=== PATIENT | male | born 1940 | race Caucasian/White ===

== ENCOUNTER → 2017-06-07 | Day surgery (SDC) | payer MEDICARE, OTHER ==
[~2017-06-07] VITALS: Ht 182.9 cm; Wt 113.4 kg
[~2017-06-07] MED LIST: 0.9% Sodium Chloride 1,000 ML IV SCH; ACET325T51 PO; ALLO300T2 PO; AMLO10TA3 PO; ATEN25TA PO; ATOR20TA PO; BUPR300T52 PO; CHOL10008 PO; ENAL20TA PO; FERR-83 PO; GABA-502 PO; GLIP2.5T2 PO; MAGN27TA2 PO; OMEG-122 PO; OMEP20CA11 PO; OXYC1TAB24 PO; POLY17PO6 PO; Sodium Chloride LOK Flush 10 mL Syringe IV PRN; TAMS0.4C98 PO; [UNRECOGNIZED DRUG - CODE] MC
[2017-06-07] MEDS: fentaNYL-PF 50 mCg/mL 2 mL Inj IVPUSH PRN ×2 (14:00→14:15)
[2017-06-07 14:06] VITALS: BP 170/78; PULSE 63; RESP 16; O2SAT 97
[2017-06-07 15:30] VITALS: BP 160/77; PULSE 61; RESP 16; O2SAT 94
[2017-06-07 15:40] VITALS: BP 107/57; PULSE 55; O2SAT 94
[2017-06-07 15:47] VITALS: BP 156/73; PULSE 61; RESP 14; O2SAT 97
--- NOTE | 2017-06-07 23:06 | ENDO ---
[address] [address] ENDOSCOPY PROCEDURE PATIENT: CARLOS ERAZO : 1940 MR#: [id number] ADMIT: 06/07/2017 JOB ID: [id number] DATE OF PROCEDURE: PROCEDURE: Colonoscopy. INDICATION: Patient with personal history of colon polyps. ANESTHESIA: Patient's ASA classification is II. Mallampati score is 2. MEDICATIONS: 1. Versed 4 mg. 2. Fentanyl 100 mcg. INSTRUMENT USED: PCF-H180AL. PREPARATION QUALITY: Fair. PROCEDURE DETAILS: After informed consent was obtained, the patient was brought to the GI suite, where he was placed on oxygen via nasal cannula and monitored with continuous pulse oximeter, telemetry, and blood pressure monitoring. A time-out was performed. Then, he was placed in the left lateral decubitus position and medications were administered for sedation. Digital rectal exam was performed which was unremarkable. The colonoscope was then inserted into the rectum and advanced under direct visualization to the cecum, which identified by the presence of the ileocecal valve and appendiceal orifice. Once the cecum was reached, the colonoscope was withdrawn back into the rectum and mucosa and lumen were examined. In the rectum, retroflexion was performed. Following retroflexion, remaining air in the rectum was suctioned and the procedure was completed. FINDINGS: 1. In the ascending colon, there were four polyps that ranged in size from diminutive to approximately 8 mm that were removed with a combination of cold biopsy forceps, cold snare and hot snare. 2. In the transverse colon, there were three polyps that ranged in size from 5 mm to 7 mm, all removed with a hot snare. 3. Retroflexed views in the rectum revealed internal hemorrhoids. IMPRESSION: 1. Four ascending colon polyps. 2. Three transverse colon polyps. 3. Internal hemorrhoids. RECOMMENDATIONS: 1. Avoid NSAIDs and anticoagulants for 72 hours. 2. Fiber rich diet. 3. Repeat colonoscopy in three years. COMPLICATIONS: None. ESTIMATED BLOOD LOSS: Less than 5 mL.
--- NOTE | 2017-06-15 11:23 | PATH ---
SURGICAL PATHOLOGY Attending Physician:Jerman Salazar CASE STATUS: Signed Out PATIENT NAME: CARLOS ERAZO JR PID: [id number] : 1940 DATE COLLECTED:06/07/2017 00:00 SPECIMEN: 1: Colon, Polyp 2: Colon, Polyp CLINICAL HISTORY: POLYPS 1). ASCENDING COLON POLYPS 2). TRANSVERSE COLON POLYP FINAL DIAGNOSIS: 1. Ascending Polyps, Polypectomies: Tubular adenoma (two of four pieces). Serrated polyp, favor sessile serrated adenoma (one of four pieces). 2. Transverse Colon Polyps, Polypectomies: Fragments of tubular adenoma and fragments of colonic mucosa with no diagnostic abnormality. ICD10: D12.2 D12.3 GROSS DESCRIPTION: The specimen is received in two formalin filled containers labeled with the patient's name. 1). The specimen is labeled "ascending polyps" and consists of 4 portions of tissue which aggregate to 0.6 x 0.4 x 0.3 CM. The specimen is entirely submitted in cassette 1A. 2). The specimen is labeled "transverse colon polyp" and consists of multiple portions of tissue which aggregate to 0.4 x 0.4 x 0.2 CM. The specimen is entirely submitted in cassette 2A. 06/08/2017NM ICD-9 CODES: CPT CODES: 1: 37322 2: 14434 Electronically Signed Out Junior Combs MD, Ph.D. Merged With [facility], [place] [address] Technical component performed at [facility], [address] [place] [address] Ave[address], [place], [address]
== END | disposition home or self-care (01) ==
LOC: END 01:23
PROVIDERS: ATTEND Internal Medicine Gastroenterology
DX: Z12.11 Encounter for screening for malignant neoplasm of colon (principal); D12.2 Benign neoplasm of ascending colon; D12.3 Benign neoplasm of transverse colon; K64.8 Other hemorrhoids; Z86.010 Personal history of colon polyps; E11.65 Type 2 diabetes mellitus with hyperglycemia; E11.21 Type 2 diabetes mellitus with diabetic nephropathy; I12.9 Hypertensive chronic kidney disease with stage 1 through stage 4 chronic kidney disease, or unspecified chronic kidney disease; N18.3 Chronic kidney disease, stage 3 (moderate); G47.33 Obstructive sleep apnea (adult) (pediatric); F32.9 Major depressive disorder, single episode, unspecified; E78.2 Mixed hyperlipidemia; E03.9 Hypothyroidism, unspecified
CPT/HCPCS: 45385; 88305; 99153; G0500; J2250; J7030

== ENCOUNTER 2017-06-09 06:30 | Observation (INO) | payer MEDICARE, OTHER ==
[2017-06-09] VITALS (10 sets, daily range): BP systolic 108–149; BP diastolic 60–80; PULSE 56–66; RESP 16–19; O2SAT 96–98
[~2017-06-09] VITALS: Ht 182.9 cm; Wt 112.4 kg
[~2017-06-09 06:30] MED LIST changes: -0.9% Sodium Chloride 1,000 ML IV SCH; -FERR-83 PO; -GLIP2.5T2 PO; -POLY17PO6 PO; -Sodium Chloride LOK Flush 10 mL Syringe IV PRN; -[UNRECOGNIZED DRUG - CODE] MC
[2017-06-09] MEDS ORDERED: Pantoprazole 4 mg/mL 10 mL Inj IVPUSH ONE (06:40)
--- NOTE | 2017-06-09 06:53 | ED.REPORT ---
HPI-GI Bleed Date of Service Jun 09, 2017 ED Provider: Corky Bautista MD The pt is a 77 y/o male w/ a hx of diabetes, HTN, hyperlipidemia, hypothyroidism , an umbilical hernia, CAD, GERD, multiple colonoscopies and polyp removals, and a ventral hernia repair presenting to the ED via EMS due to a syncopal episode. The pt reports sitting on the edge of his bathtub, losing consciousness , and hitting his head hard enough to "wake his up". He also reports seeing a little bright red blood on his toilet paper after having a bowel movement. EMS reports the pt being positive for orthostatics and seeing a lot of bright red blood in the bathtub. The pt had a colonoscopy three years ago and had a 100 polyps removed as well as a colonoscopy two days ago where he had 7 polyps removed. Nursing Notes Stated Complaint: RECTAL BLEEDING,SYNCOPE Chief Complaint: Syncope Nursing Notes Reviewed: Yes Allergies: Coded Allergies: Cephalosporins (Verified Allergy, Unknown, MOUTH AND THROAT BLISTERS, ) citalopram (Verified Adverse Reaction, Severe, DIZZINESS,UNSTEADINESS, 04/05) Scheduled Allopurinol (Allopurinol) 300 Mg Tablet 300 MG PO DAILY Amlodipine (Amlodipine) 10 Mg Tablet 10 MG PO DAILY Atenolol (Atenolol) 25 Mg Tablet 25 MG PO DAILY Atorvastatin (Lipitor) 20 Mg Tablet 20 MG PO DAILY Bupropion ER (Bupropion ER) 300 Mg Tab.er.24h 300 MG PO DAILY Enalapril Maleate (Enalapril Maleate) 20 Mg Tablet 20 MG PO DAILY Gabapentin (Gabapentin) 300 Mg Capsule 300 MG PO TID Magnesium Amino Acid Chelate (Magnesium) 27 Mg Tablet 27 MG PO TID Omega3/Dha/Epa/Fish Oil/Vit D3 ([place]-3 + Vitamin D3 Softgel) 650 Mg-300 Capsule 1 EACH PO DAILY Omeprazole (Omeprazole) 20 Mg Capsule.dr 20 MG PO DAILY Tamsulosin (Flomax) 0.4 Mg Capsule 0.4 MG PO DAILY Scheduled PRN Acetaminophen (Acetaminophen) 325 Mg Tablet 325 MG PO Q4H PRN PRN For Fever oxyCODONE-Acetaminophen 5-325 mg (oxyCODONE-Acetaminophen 5-325 mg) 1 Each Tablet 1 TAB PO BID PRN PRN For Pain Miscellaneous Medications Cholecalciferol (Vitamin D3) (Vitamin D3) 1,000 Unit Tab.chew 1,000 UNIT PO General Time Seen by Provider: 07:00 Chief Complaint Chief Complaint: Syncope Hx Obtained From: Patient, EMS Arrived By: Ambulance Onset Occurred: Just prior to arrival Symptom Duration: Since onset Recent Healthcare: No recent hospitalization, Recent doctor visit Past Medical History Past Medical History Notes: PCP: Dr. Miller Carotid duplex 07/08/2015 1. Stable 50-69% right internal carotid artery stenosis. 2. Stable less than 50% left internal carotid artery stenosis. Past Medical History Sleep Apnea Carotid stenosis Hypothyroid Umbilical Hernia Restless leg syndrome Gout Hyperhidrosis Hypogonadism Narcolepsy Colonoscopy in 2014 years ago w/ 100 polyps removed Colonoscopy 06/07/17 w/ 7 polyps removed Reports: Coronary artery disease, Diabetes mellitus, GERD, Hyperlipidemia, Hypertension Reports: Depression Past Surgical History Right carotid aortectomy Ventral hernia repair Family History Reports: Stroke Reports: Cancer Smoking History Never Smoker Social History Other Social History: Good social support, , Local resident Ambulatory Status Independent Review of Systems GI: Reports: Bloody/tarry stool Neurologic: Reports: Syncope Complete sys rev & neg: except as marked. Physical Exam Initial Vital Signs Vital Signs (First) Date Time Temp Pulse Resp B/P Pulse Ox O2 Delivery O2 Flow Rate FiO2 06/09/17 06:34 36.6 58 18 133/60 98 Room Air Initial VS: Reviewed Head / Eyes: Atraumatic, Normocephalic, PERRL ENT: Mucous membranes moist, Conjunctiva normal, No scleral icterus Neck: Supple, Non-tender, Full range of motion Skin: Warm, Dry, No cyanosis Neurologic: Alert, Oriented, Nonfocal Psychiatric: Mood/affect normal, Behavior normal, Normal thought content General/Constitutional: Awake, Alert Respiratory / Chest: Atraumatic, Breath sounds NL, Breath sounds = bilat Cardiovascular: Heart rate NL, Regular rhythm, Heart sounds NL Lower Ext Edema: Positive: Bilateral 1+ Abdomen: Atraumatic, Soft, Non-tender Rectal for Blood: Positive: Maroon stool Dried exterior maroon colored blood Interpretation & Diagnostics Lab Results Interpretation Result Diagram: 06/09/17 0630 06/09/17 0630 Test 06/09/17 06:30 White Blood Count 10.9th/mm3 (3.8-10.1) Red Blood Count 3.68mil/mm3 (4.40-5.80) Hemoglobin 11.4g/dL (13.8-17.2) Hematocrit 33.7% (41.0-50.0) Mean Corpuscular Volume 91.6fL (81-100) Mean Corpuscular Hemoglobin 31.0pg (27.0-35.0) Mean Corpuscular Hemoglobin Concent 33.8% (32.0-37.0) Red Cell Distribution Width 13.6% (12.3-15.4) Platelet Count 173bil/L (150-400) Neutrophils (%) (Auto) 58.7% (40-74) Lymphocytes (%) (Auto) 31.6% (14-46) Monocytes (%) (Auto) 6.6% (4-12) Eosinophils (%) (Auto) 2.5% (0-5) Basophils (%) (Auto) 0.4% (0-3) Prothrombin Time 10.0sec (8.1-12.5) Prothromb Time International Ratio 0.94ratio Sodium Level 143mEq/L (134-144) Potassium Level 4.3mEq/L (3.5-5.2) Chloride Level 107mEq/L (97-108) Carbon Dioxide Level 22mmol/L (18-29) Blood Urea Nitrogen 16mg/dL (8-27) Creatinine 1.24mg/dL (0.76-1.27) Estimat Glomerular Filtration Rate 60mL/min (>59) Glucose Level 152mg/dL (60-99) Calcium Level 7.8mg/dL (8.5-10.1) Total Bilirubin 0.2mg/dL (0.0-1.2) Aspartate Amino Transf (AST/SGOT) 25U/L (0-50) Alanine Aminotransferase (ALT/SGPT) 33U/L (0-44) Alkaline Phosphatase 64U/L (25-160) Total Protein 5.6g/dL (6.4-8.4) Albumin 3.2g/dL (3.4-5.0) ECG Interpretation ECG Interpretation: Rate 60 NSR Prolonged IA interval Incomplete LBBB Time: 06:55 Interpreted by: ED physician Re-Eval/Medical Decision Source of Hx: Old records Re-Evaluation/Progress : Time of Eval: 07:53 Re-Evaluation/Progress Note: Pt rechecked. Informed pt of need for admission. Pt understands and agrees with plan for admission. All questions addressed. Consultation #1: Referral / Consult Name: Carlos A Hart MD Call Returned at: 07:41 Supervisor Tree Trimming: Will see patient Note: Discussed pt's case w/ Dr. Hart, wall attendant, who will see the pt. Consultation #2: Referral / Consult Name: Sandra Zuniga DO Consulted With: Hospitalist Call Returned at: 07:53 Supervisor Tree Trimming: Will see patient, Agrees with eval, Agrees with plan, Accepts admit Counseled Regarding: Diagnosis, Lab results, Need for admission Discharge & Departure Impression: Primary Impression: Syncope Syncope type: unspecified Qualified Code: R55 - Syncope and collapse Additional Impression: GI bleed GI bleed type/associated pathology: unspecified gastrointestinal hemorrhage type Qualified Code: K92.2 - Gastrointestinal hemorrhage, unspecified Disposition: ADMITTED TO HOSPITAL Discharge Condition All VS Reviewed: Yes Condition: Stable Referrals: Stephanie Miller MD (PCP) Awilda De La O MD Scribe Attestation Portions of this note were transcribed by Matthieu Levin. IDr. Bautista personally performed the history, physical exam and medical decision-making; I reviewed and confirmed the accuracy of the information in the transcribed note. copies to: Awilda De La O MD; Stephanie Miller MD, Kirk H MD Jun 09, 2017 06:53 Matthieu Levin Jun 09, 2017 07:38
[2017-06-09 06:57] LABS: BASOPHILS % (AUTO) 0.4 % (0-3); EOSINOPHILS % (AUTO) 2.5 % (0-5); MONOCYTES % (AUTO) 6.6 % (4-12); Mean Corpuscular Volume 91.6 fL (81-100); NEUTROPHILS % (AUTO) 58.7 % (40-74); Platelet Count 173 bil/L (150-400)
[2017-06-09 07:11] LABS: INR 0.94 ratio
[2017-06-09] MEDS ORDERED: Alum-Mag Hydrox-Simeth 30 mL Suspension PO PRN (08:00)
[2017-06-09] MEDS ORDERED: Ondansetron 2 mg/mL 2 mL Inj IVPUSH PRN (08:00)
[2017-06-09] MEDS ORDERED: GLIP2.5T2 PO (08:45)
[2017-06-09] MEDS: 0.9% Sodium Chloride 1,000 ML IV SCH ×2 (10:23→17:51)
[2017-06-09] MEDS ORDERED: Glucose 40% Oral Gel 15 Gm Tube PO PRN (10:30)
[2017-06-09] MEDS: buPROPion XL 300 mg ER24 Tablet PO SCH (10:33)
[2017-06-09] MEDS ORDERED: Dextrose 5% 250 ML IV PRN (10:40)
--- NOTE | 2017-06-09 10:55 | DRSVH ---
PROCEDURE: CT BRAIN WITHOUT CONTRAST ([id number]) INDICATIONS: 77-year-old male with syncopal episode. TECHNIQUE: Noncontrast 4.5 mm thick angled axial sections acquired from the foramen magnum to the vertex, with c oronal reformats. COMPARISON: [facility], CT, CT BRAIN WO CON, 02/12/2017, 13:03. [facility], CT, CT BRAIN WO CON, 07/21/2015, 18:57. FINDINGS: Image quality: Excellent. CSF spaces: Basal cisterns are patent. No extra-axial fluid collections. The ventricles are symmet lawrence in size and shape. Brain: No intracranial bleeds or masses. There is non-acute lacunar infarct involving the left thala patrick lobe as before. There are minimal periventricular and deep white matter chronic small vessel isch emic changes. There is intracranial internal carotid artery atherosclerosis. Skull and face: Calvarium and visualized facial bones appear intact, without suspicious lesions. Th ere is small right parietal scalp hematoma formation. Sinuses: There is small left maxillary sinus mucus retention cyst or polyp, status post remote bilate ral maxillary and ethmoid sinus surgeries. Mastoid air cells appear clear. IMPRESSION: 1. No acute intracranial abnormalities. Small posterior right parietal scalp hematoma. 2. Nonacute lacunar infarct of the left thalamus as before. Minimal periventricular white matter lunchroom worker dania small vessel ischemic change. Dictated by: Aki Chiu M.D. on 06/09/2017 at 10:49 Approved by: Aki Chiu M.D. on 06/09/2017 at 10:53
--- NOTE | 2017-06-09 11:38 | CONS ---
[address] [address] CONSULTATION REPORT PATIENT: CARLOS ERAZO : 1940 MR#: [id number] ADMIT: 06/09/2017 JOB ID: [id number] DATE OF SERVICE: 06/09/2017 REASON FOR CONSULTATION: Rectal bleeding. HISTORY OF PRESENT ILLNESS: A 77-year-old, male with history of hypertension, hypothyroidism, hyperlipidemia, umbilical hernia, coronary artery disease, GERD, history of 50-69% right internal carotid artery stenosis, 50% left internal carotid artery stenosis, obstructive sleep apnea, restless legs syndrome, diabetes, depression who presents for consultation for rectal bleeding. The patient underwent a colonoscopy that was performed on June 07, 2017 in which four ascending colon polyps and three transverse colon polyps removed. The ascending colon polyps there were four of them, ranging in size about 8 mm. They were removed with combination of cold biopsy forceps, cold snare and hot snare polypectomy. There were three transverse colon polyps ranging in size from 5 mm to 10 mm, all removed by hot snare polypectomy. Internal hemorrhoids were also seen. The patient was taking a baby aspirin as an outpatient. This was performed the next day. The patient had a single episode had and bright red blood per rectum and it covered the entire toilet. The patient states he had an upper endoscope in the past, 20-30 years ago, unknown results. The patient denies family history of colon cancer, inflammatory bowel disease or celiac disease. The patient denies melena, nausea, vomiting, hematemesis, abdominal pain, unintentional weight loss. PAST MEDICAL HISTORY: As stated above. PAST SURGERIES: Right carotid endarterectomy and ventral hernia repair. ALLERGIES TO: 1. CEPHALOSPORIN. 2. CITALOPRAM. SCHEDULE MEDICATIONS: Allopurinol, amlodipine, atenolol, Lipitor, bupropion, enalapril, , magnesium, [place] 3, vitamin D3, omeprazole and Flomax. SOCIAL HISTORY: No smoking, alcohol, or drugs. FAMILY HISTORY: Negative for colon cancer, IBD or celiac disease. REVIEW OF SYSTEMS: The patient denies headache, blurred vision, nausea, vomiting, chest pain, shortness of breath, abdominal pain, skin rash or joint pain. PHYSICAL EXAMINATION: Vital signs upon presentation: Temperature is 36.6, pulse of 66, respiratory rate of 19, blood pressure 137/73, saturating 96% on room air. General: No acute distress. Head: No scars. Eyes: Anicteric. Throat: Supple. Lungs: Clear to auscultation bilaterally. Cardiovascular: Regular rhythm and rate. Abdomen: Soft, nondistended, nontender. Normal bowel sounds. Extremities: No cyanosis, clubbing or edema. LABORATORIES: Show white count 10.9, hemoglobin 11.4, hematocrit 33, platelet count 173. Sodium 143, potassium 4.0, chloride 107, bicarb 22, BUN 16, creatinine 1.2, glucose 152, calcium 7.8. Total bili 0.2. AST 25, ALT 30, alk phos 54, total protein 5.6, albumin 3.2. PT 10.0, INR 0.94. ASSESSMENT AND PLAN: This is a 77-year-old, female, history of diabetes, hypertension, hyperlipidemia, hypothyroidism, umbilical hernia, coronary artery disease, GERD, 50% left internal carotid artery stenosis, obstructive sleep apnea, restless legs syndrome, obstructive sleep apnea, diabetes who presents for consultation for syncopal episode with bright red blood per rectum after colonoscopy with post polypectomy. This is concerning for possible post polypectomy bleed. At this point in time, I would recommend clear liquids during the day and we will repeat his colonoscopy to be scheduled for tomorrow. RECOMMENDATIONS: 1. Clear liquid diet today. 2. GoLYTELY prep tonight with colonoscopy scheduled for tomorrow morning with anesthesia. CHULA
--- NOTE | 2017-06-09 11:53 | NUR ---
Arrival to Floor Patient arrives to [facility] from ED alert and oriented via stretcher. Patient ambulated to bed without incident, denies dizziness or nausea. Patient instructed to alert staff when using the bathroom in order to visualize stool.
[2017-06-09] MEDS: Insulin LISPRO 300 Unit/3 mL Inj SUBQ SCH ×3 (12:00→22:00)
--- NOTE | 2017-06-09 14:17 | NUR ---
Evaluation completed. Please go to "Notes" then click on "Assessments and Notes" (bottom left corner of screen). Then select appropriate discipline tab on top of screen.
[2017-06-09 15:37] LABS: APPEARANCE,URINE CLEAR (CLEAR,HAZY); COLOR,URINE STRAW (YELLOW); OCCULT BLOOD,URINE NEGATIVE (NEGATIVE); PH,URINE 5.5 (5.0-8.0); UROBILINOGEN,URINE NORMAL (NORMAL)
--- NOTE | 2017-06-09 15:39 | DRSVH ---
[facility] [address] [place] [address] Echocardiogram Report Name: CARLOS ERAZO RStudy Date : 06/09/2017 Height: 72 in Hospital Exam Location: [facility] Weight: 246 lb Gender: Male BSA: 2.3 m2 : 1940 Age: 77 yrs BP: 132/66 mmHg Reason For Study: Syncope Ordering Physician: Performed By: Solomon Yang Referring Physician: ANN-MARIE VELASQUEZ Interpretation Summary 1) Small left ventricular cavity with normal thickness, wall motion, and systolic function (EF 60-65%). 2) Grossly, normal right ventricular size and function. 3) No significant valvular abnormalities. 4) No prior Echo available for comparison. Procedure: A two-dimensional transthoracic echocardiogram with color flow and Doppler was performed. The study quality was technically difficult. Images from the parasternal window were difficult to obtain and are suboptimal in quality. There is no prior echocardiogram noted for this patient. The patient was in sinus bradycardia with heart rates between 52-57 bpm during the exam. Left Ventricle: There is normal left ventricular wall thickness. The left ventricular cavity is small. The ejection fraction is estimated to be 60-65%. Left ventricular systolic function is normal. There are no focal wall motion abnormalities. Right Ventricle: The right ventricle grossly appears normal in size with probable normal systolic function. Atria: The left atrial size is normal. Right atrial size is normal. The interatrial septum is intact with no evidence for an atrial septal defect. Mitral Valve: The mitral valve is normal. There is no mitral regurgitation noted. Aortic Valve: The aortic valve is normal in structure and function. There is no aortic valve stenosis. No aortic regurgitation is present. Tricuspid Valve: The tricuspid valve is not well visualized, but is grossly normal. Pulmonary artery pressures cannot be estimated because of the lack of a measurable TR jet velocity. Pulmonic Valve: The pulmonic valve is not well visualized. Great Vessels: The aortic root is normal size. The dimensions of the ascending aorta are normal. The pulmonary is not well visualized. The IVC is of normal diameter and collapses greater than 50% with a sniff. This suggests a low right atrial pressure of 3 mm Hg. Pericardium/ Pleura There is no pericardial effusion. There is no pleural effusion. MMode/2D Measurements & Calculations LVOT diam: 2.0 cm LA A2 area: 12.7 cm Ao root diam: 3.3 cm LA A4 area: 14.2 cm asc Aorta Diam: 2.7 cm LA length (vol): 3.8 cm Ao Arch Diam (Prox Trans): 3.2 cm LA vol: 40.1 ml LA vol index: 17.2 ml/m2 Doppler Measurements & Calculations Ao V2 max: 114.8 cm/secMV E max mack MV E/A: 0.72 PA V2 max Ao max P.3 mmHg : 65.0 cm/sec Med Peak E' Mack : 70.6 cm/sec Ao mean P.0 mmHg MV A max mack PA mean PG LVOT Max Mack : 90.7 cm/sec E/E' med: 11.0 : 1.2 mmHg : 96.3 cm/sec Lat Peak E' Mack KATHY(I,D): 2.6 cm E/E' lat: 8.0 sev ratio: 0.81 E/e' average: 9.5 MV dec time: 0.30 sec Ao V2 mean LV V1 max PG PA V2 mean : 83.6 cm/sec : 53.5 cm/sec Ao V2 VTI: 26.3 cmLV V1 VTI: 21.4 cm PA pr(Accel) : 21.4 mmHg KATHY(V,D): 2.7 cm2 KATHY indexed to BSA (cm^2/m^2): 1.1 Reading Physician:03:38 PM
[2017-06-09] MEDS ORDERED: PEG/Electrolytes 4,000 mL Solution PO ONE (16:00)
--- NOTE | 2017-06-09 16:34 | NUR ---
Nausea Patient reports a small amount of intermittent nausea this shift. Patient declines any anti-nausea medication as of this time. Patient denies any abdominal pain. Care is ongoing.
--- NOTE | 2017-06-09 19:28 | NUR ---
Bowel Movement Patient had a bowel movement at approx. 1855 this shift, nakia red stool noted. Patient admitted for GI bleed. Care is ongoing.
--- NOTE | 2017-06-09 21:06 | PCM.HPMED ---
Subjective Date of Service Jun 09, 2017 Primary Provider: Admitting Physician: Sandra Zuniga DO Primary Care Physician: Stephanie Miller MD Attending Physician: Sandra Zuniga DO Admit Status: From the Emergency Department Chief Complaint: Syncope History of Present Illness: 76 yo WM with PMH of DM2, HTN, CAD, colon polyps s/p several colonoscopies is presenting with syncope. He says he has had a colonoscopy [address] kidd as a 3 yr f/u, had a little blood with BM that he wiped on toilet paper at that time but had no other problems until this morning. He was told he had vertigo last year. He has no room spinning sensation. He thinks he eating and hydrating normally. He feels his BP are usually under control. He was told his orthostatics are positive by the EMT. He was standing up and urinating at home this am when he felt like he needs to sit down sat at the edge of the bath tub, then he does not remember what happened. He must have fell hard because his heard it and came to check on him, she called the EMT, he states that he had a moment after this fainting episode, EMT reported maroon colored BM. Patient is quite unaware of this GI bleed. Emergency room Patient's H&H was 11.1/33.7, BG was 152. EKG showed incomplete LBBB. Prior EKG: Also displayed LBBB Patient is admitted for GI bleed and syncope to the [facility] team Review of Systems: Complete review of systems performed, pertinent positives and negatives per history of present illness, all other systems reviewed and are negative. Allergies Coded Allergies: Cephalosporins (Verified Allergy, Unknown, MOUTH AND THROAT BLISTERS, ) citalopram (Verified Adverse Reaction, Severe, DIZZINESS,UNSTEADINESS, 04/05) Home Medications allopurinol, amlodipine, enalapril, glipizide, atorvastatin, atenolol, omeprazole, tamsulosin, gabapentin PMH Hypertension, CAD, HLD, Diabetes on Glipizide, Hypogonadis, narcolepsy, GERD, multiple colonoscopied, KWADWO, Gout, RLS, Depression, hypothyroidism, hypogonadism Surgical History ventral hernia repain, R carotid endarterectomy 8 yrs ago, Voluvulus, Appy Family History Says he is estranged from his biological family, he does not know their health history. His mother with a hypochondriac Social History Occupation: retired distrib business esthetician/owner Hx Alcohol Use: No Hx Substance Use: No Hx Tobacco Use: No Smoking Status: Never Smoker Living Arrangement: with Family Exam Vital Signs Vital Sign - Last Date Time Temp Pulse Resp B/P Pulse Ox O2 Delivery O2 Flow Rate FiO2 06/09/17 08:43 35.9 64 19 132/66 98 Room Air Exam General: No acute distress, appropriately interactive HEENT: Normocephalic, atraumatic. External ears without defect. Pupils equal, round, and reactive to light and accommodation. Anicteric sclerae, moist conjunctivae, and no lid lag. Oropharynx free of erythema and cobble stoning with moist mucosa. Neck: Supple with full range of motion. No jugular venous distension. No bruits. No lymphadenopathy or thyromegaly. Cardiovascular: Regular rate and rhythm with no murmurs, rubs, or gallops appreciated Pulmonary: Clear to auscultation bilaterally with no crackles, wheezes, or rhonchi. Normal respiratory effort with no use of accessory muscles. Abdomen: Bowel tones present. Nontender, nondistended soft. No hepatosplenomegaly or masses appreciated. Extremities: No clubbing, cyanosis, plus symmetric lower leg edema Skin: Normal temperature, turgor, and texture; no rash, ulcers, or subcutaneous nodules appreciated. R neck scar from endarterectomy Neurological: Cranial nerves grossly intact. Normal muscle strength, tone, and bulk. Reflexes, coordination, and sensory function within normal limits. No known gait impairment. Negative Romberg's Psychiatric: Normal mood and affect. Alert and oriented to person, place, and time. Lab and Diagnostics Result Diagram: 06/09/1730 06/09/17 0630 X-Rays, CTs and MRIs PROCEDURE: CT BRAIN WITHOUT CONTRAST ([id number]) INDICATIONS: 77-year-old male with syncopal episode. TECHNIQUE: Noncontrast 4.5 mm thick angled axial sections acquired from the foramen magnum to the vertex, with coronal reformats. COMPARISON: [facility], CT, CT BRAIN WO CON, 02/12/2017, 13:03. [facility], CT, CT BRAIN WO CON, 07/21/2015, 18:57. FINDINGS: Image quality: Excellent. CSF spaces: Basal cisterns are patent. No extra-axial fluid collections. The ventricles are symmetric in size and shape. Brain: No intracranial bleeds or masses. There is non-acute lacunar infarct involving the left thalamic lobe as before. There are minimal periventricular and deep white matter chronic small vessel ischemic changes. There is intracranial internal carotid artery atherosclerosis. Skull and face: Calvarium and visualized facial bones appear intact, without suspicious lesions. There is small right parietal scalp hematoma formation. Sinuses: There is small left maxillary sinus mucus retention cyst or polyp, status post remote bilateral maxillary and ethmoid sinus surgeries. Mastoid air cells appear clear. IMPRESSION: 1. No acute intracranial abnormalities. Small posterior right parietal scalp hematoma. 2. Nonacute lacunar infarct of the left thalamus as before. Minimal periventricular white matter chronic small vessel ischemic change. Dictated by: Aki Chiu M.D. on 06/09/2017 at 10:49 Approved by: Aki Chiu M.D. on 06/09/2017 at 10:53 Assessment & Plan GI Bleed present on admission acute -- Patient is status post colonoscopy, polypectomy. maroon-colored stool is described by EMS -- Dr. Hart from GI is consulted, he has seen the patient put patient on clear liquid diet he will take the patient to repeat scope tomorrow a.m. if hemoglobin is not stable -- Every 4 hours H&H are ordered -- Nothing by mouth after midnight Syncope, acute resolved upon admission -- Differential C include but not limited to GI bleed, dehydration, orthostatic hypotension, stroke, cardiac, carotid stenosis, no blood glucose. Recent carotid ultrasound 2016 showed no concern for > 50 %stenosis. Patient was noted to be hypoglycemic at 150 upon arrival to ER -- UA Is negative for infection -- Consider seizure in the differential, ordered an EEG -- CT of head -- Troponin T on labs -- Increased compression stockings, elevation of legs. Better hydration -- Hydrate with normal saline 125 mL per hour -- Orthostatics -- Telemonitoring -- Ultrasound echo DM 2, chronic presumed stable -- Takes glimepiride at home, oriented this medication -- Diabetic sliding scale low protocol Nystagmus and right eye -- Unknown chronicity, physical therapy for epleys/vestibular therapy Hypothyroidism chronic presumed stable -- Continue home medications hyperlipidemia chronic presumed stable -Continue medications Hypertension chronic presumed stable -- Due to concern for hypovolemia, resume lisinopril and atenolol but hold off on the department obstructive sleep apnea chronic presumed stable -- Ask if patient needs a CPAP Gout chronic stable -- Continue home medications depression chronic stable -- Continue home medication CODE STATUS: DNR/DNI Alternate decision-maker: Viri Patient is admitted under Inpatient status with expected length of stay greater than 2 midnights due to severity of presenting symptoms, risk of adverse event, and complexity of treatment plan.Discussed diagnosis, workup, imaging, and treatment plan with patient and he expressed an verbalized his understanding. Resuscitation Status: DNR/DNI:Do Not Resuscitate/Intubate ( Viri is his ADM) Time spent 45 minutes Sandra Zuniga DO Jun 09, 2017 09:05
[2017-06-10] VITALS (14 sets, daily range): BP systolic 124–198; BP diastolic 65–83; PULSE 62–76; RESP 14–19; O2SAT 93–100
--- NOTE | 2017-06-10 01:58 | NUR ---
Bloody Stool Pt has nearly completed bowel prep. 2 Stool so far this shift which have been watery, no solid masses but some particulate matter, and bright red. IVF: NS at 125 continued. H/H draw Q h most recent is .7.2. Home cpap set up by RT and pt is wearing while in bed. On telemetry, Sinus 66. No insulin at HS blood sugar was 94. Pt will be maintained on clear liquid diet until 0530. No SOB, no nausea, no chest pain. Care continues
[2017-06-10] MEDS: 0.9% Sodium Chloride 1,000 ML IV SCH ×4 (02:35→21:23)
[2017-06-10 05:41] LABS: BASOPHILS % (AUTO) 0.4 % (0-3); EOSINOPHILS % (AUTO) 1.9 % (0-5); MONOCYTES % (AUTO) 5.8 % (4-12); Mean Corpuscular Volume 92.2 fL (81-100); NEUTROPHILS % (AUTO) 60.1 % (40-74); Platelet Count 129 bil/L (150-400)
[2017-06-10] MEDS: Pantoprazole 20 mg ER24 Tablet PO SCH ×2 (06:30→11:46)
[2017-06-10] MEDS: Insulin LISPRO 300 Unit/3 mL Inj SUBQ SCH ×4 (07:42→22:00)
[2017-06-10] MEDS ORDERED: Non-Formulary Medication (Amlodipine 10 MG) PO SCH (08:30)
--- NOTE | 2017-06-10 08:54 | NUR ---
To ENDO Patient to endoscopy. Saline locked. Transferred to [facility]. Addendum: 06/10/17 at 1056 by ANKUR GARCIA RN From ENDO Denies chest pain, shortness of breath, and pain. A&OX3. Reports feeling "druggy". Able to transfer from [facility] to [facility]. Family at bedside. Telemetry in place and shampoo technician aware. IV fluids infusing.
[2017-06-10] MEDS ORDERED: Lactated Ringer's 1,000 ML IV ONE ×2 (09:11)
[2017-06-10] MEDS ORDERED: Lactated Ringer's 1,000 ML IV SCH (09:24)
--- NOTE | 2017-06-10 09:24 | PCM.HPANE ---
Patient Data Surgeon Admitting Provider:Sandra Zuniga DO Attending Provider:Sandra Zuniga DO Primary Care Physician:Stephanie Miller MD Other Provider: Reason for Visit Syncope,Gi Bleed SYNCOPE,GI BLEED Ht/WT & BMI Height (Feet): 6 Height (Inches): 0.00 Weight (Kilograms): 111.600 Body Mass Index 33.00 Allergies Coded Allergies: Cephalosporins (Verified Allergy, Unknown, MOUTH AND THROAT BLISTERS, ) citalopram (Verified Adverse Reaction, Severe, DIZZINESS,UNSTEADINESS, 04/05) Past Anesthesia History Anesthesia History: Denies:: Abnormal Airway, Anesthesia Reactions, Difficult Intubation, Fam Anesthesia Reaction, Fam Malignant Hypertherm, Malignant Hyperthermia Diabetes History Hx Diabetes?: Yes Current Bedside Blood Glucose: 116 MRSA MRSA: No Medications Blood Thinner: Aspirin Last Dose Blood Thinner: Jun 07, 2017 Home Meds Incl Beta Joie: Yes Date Beta Joie Taken: Jun 09, 2017 Time Beta Joie Taken: 1022 Reported Medications Glipizide ER 2.5 Mg Tab.er.241 Tablet PO DAILYWM #90 06/09/17 Acetaminophen 325 Mg [id number] Mg PO Q4H PRN For Fever Ref 0 04/05/16 Tamsulosin (Flomax)0.4 Mg Capsule0.4 Mg PO DAILY Ref 0 04/05/16 Omeprazole 20 Mg Capsule.dr20 Mg PO DAILY Ref 0 04/05/16 Gabapentin 300 Mg Ggishmg450 Mg PO BID Ref 0 04/05/16 Enalapril Maleate 20 Mg Esngws55 Mg PO DAILY 04/05/16 Bupropion ER 300 Mg Tab.er.22p258 Mg PO DAILY Ref 0 04/05/16 Atorvastatin (Lipitor)20 Mg Kwgnwj15 Mg PO DAILY Ref 0 04/05/16 Atenolol 25 Mg Ooimil50 Mg PO DAILY #30 TABLET Ref 0 04/05/16 Amlodipine 10 Mg Kmcsgu19 Mg PO DAILY Ref 0 04/05/16 Allopurinol 300 Mg Liymah151 Mg PO DAILY Ref 0 04/05/16 Discontinued Reported Medications Magnesium Amino Acid Chelate (Magnesium)27 Mg Pycygm84 Mg PO TID 06/05/17 Cholecalciferol (Vitamin D3) (Vitamin D3)1,000 Unit Tab.chew1,000 Unit PO 04/05/16 oxyCODONE-Acetaminophen 5-325 mg 1 Each Tablet1 Tab PO BID PRN For Pain Ref 0 04/05/16 Omega3/Dha/Epa/Fish Oil/Vit D3 ([place]-3 + Vitamin D3 Softgel)650 Mg-300 Capsule1 Each PO DAILY 04/05/16 Temazepam 15 Mg Yhiehbl30 Mg PO HS PRN For Insomnia 30 Days Ref 0 04/05/16 Magnesium Oxide (Magnesium)400 Mg Gohdifo778 Mg PO DAILY 06/03/13 History History of ENT Problems?: Yes HEENT History: Positive for:: Cataracts (bilateral) Denies:: Abnormal Airway Difficult Intubation Dysphagia Glaucoma Hearing Problem Sinus Problem Denture Type: None Teeth Condition: Within Normal Limits Hx of Heart Problems?: Yes Cardiovascular History: Positive for:: Edema (PEDAL) Hypertension Denies:: AICD Atrial Fibrillation Cardiac Surgery Chest Pain Congestive Heart Failure Heart Murmur Irregular Heartbeat Pacemaker Thrombophlebitis Valvular Heart Disease Hx of Respiratory Problem?: No Respiratory History: Positive for:: Use of C-PAP Machine (KWADWO + SLEEP STUDY 07/2010) Denies:: Asthma COPD Chest Surgery Cough Dyspnea Emphysema Hemoptysis Pneumonia Tuberculosis Hx Neurologic Problems?: Yes Neurological History: Positive for:: Dizziness Denies:: Alzheimer's Disease CVA Dementia Headaches Parkinson's Disease Seizures Hx of GI Problems?: Yes Other History/Comment concern for GIB Hx of Problems?: No Genitourinary History: Denies:: HX of Hemodialysis Kidney Stones Urinary Tract Infection HX of Peritoneal Dialysis: No Male Hx: Positive for:: Prostate Problems (enlarged) Denies:: Scrotal Mass Testicular Surgery Skin History: Denies:: History Skin Disorders? Pressure Ulcers Hx Musculoskeletal Problems?: Yes Musculoskeletal History: Positive for:: Back Injury (fused disc surgery 5+ years ago) Musculoskeletal Trauma (HX OF NON DISPLACED RT PATELLAR FX) Denies:: Joint Replacement Hx of Psycho/Social Problems?: Yes Psycho Social History: Positive for:: Hx Depression (takes wellbutrin) Denies:: Anxiety Bipolar Disorder Suicide Attempt Hx Surgeries?: Yes (TONSILLS, APPY, CAROTID ARTERY, HH, ) Hx Any Other Health Problems?: Yes Other History: Positive for:: Hospitalization (colon surgery, heart tests, hiatal surgery) Denies:: Cancer Endocrine Disease Thyroid Disease History Blood Transfusions: Positive for:: Accept Blood Products? 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 Category 1B: Patient has history of documented sleep apnea, and HAS received any narcotic , sedative or anesthesia administration during this stay Category 2: Patient has SUSPECTED Obstructive Sleep Apnea, and HAS received any narcotic , sedative or anesthesia administration during this stay. Category 3: Patient has SUSPECTED Obstructive Sleep Apnea and HAS NOT received narcotic, sedative or anesthesia administration during this stay. Category 4: Outpatient in Procedural Areas with known sleep apnea or who screen positive for High Risk via the STOP/BANG questionnaire. Exam Exam Vital Signs Vital Signs Date Time Temp Pulse Resp B/P Pulse Ox O2 Delivery O2 Flow Rate FiO2 06/10/17 09:09 36.6 73 16 198/82 97 Room Air 06/10/17 08:00 76 06/10/17 05:57 66 06/10/17 04:31 36.3 75 18 139/72 96 CPAP General Appearance: Alert, Oriented X3 HEENT/AIRWAY: MP 2, Neck Movement Lungs: Clear to Auscultation, Clear to Percussion Heart: Exam Unremarkable, Regular Rate/Rhythm Meds/Labs/Diagnostics Admission Meds Current Medications Polyethylene Glycol/ Electrolytes 4000 ml 4,000 ml ONCE ONCE PO Last administered on 06/09/17 16:09; Start 06/09/17 at 16:00; Stop 06/09/17 at 16:01; Status DC Sodium Chloride 1,000 ml @ 125 mls/hr Q8H IV Last administered on 06/10/17 02 :35; Start 06/09/17 at 10:10 Lactated Ringer's (Lr) 1,000 ml @ ud STK-MED ONCE IV Last administered on 06/10 09:11; Start 06/10/17 at 09:11; Stop 06/10/17 at 09:12; Status DC Bedside Blood Glucose: 116 Labs Test 06/09/17 06:30 06/09/17 10:05 06/09/17 10:14 06/10/17 05:24 Prothrombin Time 10.0sec (8.1-12.5) Prothromb Time International Ratio 0.94ratio Troponin T 0.010ug/L (0.0-0.011) Urine Color Straw (YELLOW) Urine Appearance Clear (CLEAR,HAZY) Urine pH 5.5 (5.0-8.0) Urine Specific [place] 1.010 (1.003-1.035) Urine Protein Negativemg/dL (NEG,TRACE) Urine Glucose (UA) Negativemg/dL (NEGATIVE) Urine Ketones Negativemg/dL (NEGATIVE) Urine Occult Blood Negative (NEGATIVE) Urine Nitrite Negative (NEGATIVE) Urine Bilirubin Negative (NEGATIVE) Urine Urobilinogen Normalmg/dL (NORMAL) Urine Leukocyte Esterase Negative (NEGATIVE) Urine RBC 0-2/hpf (0-2) Urine WBC 0-5/hpf (0-5) Urine Epithelial Cells None/hpf (NONE-MOD) Urine Crystals None seen (NONE SEEN) Urine Bacteria Few/hpf (NONE-FEW) Urine Hyaline Casts None/lpf (NONE) Urine Granular Casts None seen (NONE SEEN) Urine Waxy Casts None seen (NONE SEEN) Urine Red Blood Cell Casts None seen (NONE SEEN) Urine White Blood Cell Casts None seen (NONE SEEN) Urine Mucus None seen (None Seen) Urine Trichomonas None seen (NONE SEEN) Urine Yeast None (NONE SEEN) Urinalysis Comment None Urine Culture Reflexed Not indicated White Blood Count 9.5th/mm3 (3.8-10.1) Red Blood Count 3.19mil/mm3 (4.40-5.80) Hemoglobin 9.9g/dL (13.8-17.2) Hematocrit 29.4% (41.0-50.0) Mean Corpuscular Volume 92.2fL (81-100) Mean Corpuscular Hemoglobin 31.0pg (27.0-35.0) Mean Corpuscular Hemoglobin Concent 33.7% (32.0-37.0) Red Cell Distribution Width 13.9% (12.3-15.4) Platelet Count 129bil/L (150-400) Neutrophils (%) (Auto) 60.1% (40-74) Lymphocytes (%) (Auto) 31.6% (14-46) Monocytes (%) (Auto) 5.8% (4-12) Eosinophils (%) (Auto) 1.9% (0-5) Basophils (%) (Auto) 0.4% (0-3) Sodium Level 145mEq/L (134-144) Potassium Level 3.9mEq/L (3.5-5.2) Chloride Level 109mEq/L (97-108) Carbon Dioxide Level 22mmol/L (18-29) Blood Urea Nitrogen 12mg/dL (8-27) Creatinine 1.15mg/dL (0.76-1.27) Estimat Glomerular Filtration Rate 65mL/min (>59) Glucose Level 116mg/dL (60-99) Calcium Level 7.7mg/dL (8.5-10.1) Total Bilirubin 0.3mg/dL (0.0-1.2) Aspartate Amino Transf (AST/SGOT) 20U/L (0-50) Alanine Aminotransferase (ALT/SGPT) 28U/L (0-44) Alkaline Phosphatase 59U/L (25-160) Total Protein 5.2g/dL (6.4-8.4) Albumin 3.1g/dL (3.4-5.0) Plan Impression Patient chart reviewed, patient interviewed and anesthestic plan with risks, benefits, and alternatives discussed, and informed consent obtained. ASA Physical Status: ASA3 Severe Disease (CAD) Anesthetic Plan: MAC Bene/Risks/Altern/Consents: Yes HP Complete Prior to Induction: Yes Mina Manuel MD Jun 10, 2017 09:24
[2017-06-10] MEDS ORDERED: Ondansetron 2 mg/mL 2 mL Inj IVPUSH PRN (09:25)
[2017-06-10] MEDS ORDERED: MetoCLOpramide 5 mg/mL 2 mL Inj IVPUSH PRN (09:25)
--- NOTE | 2017-06-10 10:22 | PCM.ANEP1 ---
Post Anesthesia PACU Phase 1 Assessment Vital Signs Vital Signs Date Time Temp Pulse Resp B/P Pulse Ox O2 Delivery O2 Flow Rate FiO2 06/10/17 09:26 36.6 62 19 141/77 97 Room Air 06/10/17 09:09 36.6 73 16 198/82 97 Room Air 06/10/17 08:00 76 06/10/17 05:57 66 06/10/17 04:31 36.3 75 18 139/72 96 CPAP Anesthetic Administered: MAC Level of Alertness: Awake, talking GUDINO's with Equal Strength: Yes Pain: No (pt is coumfortable watching tv) Nausea or Vomiting: No CV Function & Hydration Stable: Yes Airway Device: Lungs: Clear to Auscultation, Clear to Percussion PACU Phase 2 Assessment Complications: No Follow up Care: No Patient Instructions Provided: N/A Comments See anesth record for PACU VS. PACU VSS Mina Manuel MD Jun 10, 2017 10:22
--- NOTE | 2017-06-10 10:48 | ENDO ---
[address] [address] ENDOSCOPY PROCEDURE PATIENT: CARLOS ERAZO : 1940 MR#: [id number] ADMIT: 06/09/2017 JOB ID: [id number] DATE OF SERVICE: 06/10/2017 TYPE OF OPERATION: Colonoscopy with argon plasma coagulation, Gold probe thermocoagulation, epi injection, hemoclip placed x2. PREOPERATIVE DIAGNOSIS(ES): Gastrointestinal bleed. POSTOPERATIVE DIAGNOSIS(ES): 1. There was an area of a post polypectomy site in ascending colon with recent stigmata of bleed in the ascending colon status post 4 cc epi injection, argon plasma coagulation and gold probe thermocoagulation, hemoclip x1 placed. 2. There is another area in the transverse colon post polypectomy site with recent stigmata of bleed in which 2 cc epi injection, Gold probe thermocoagulation, argon plasma coagulation, and one hemoclip placed, both with great hemostasis. ANESTHESIA: Monitored anesthesia care. COMPLICATIONS: None. ESTIMATED BLOOD LOSS: Minimal. DESCRIPTION OF PROCEDURE: After risks and benefits explained to the patient, informed consent was obtained. After anesthesia administered, colonoscope was inserted from rectum to cecum. Mucosa carefully examined. Prep of the patient was fair. After the procedure was done, the scope withdrawn and procedure terminated. FINDINGS: Upon inspection of the anus, no masses, hemorrhoids, ulcers, fissures that were seen. Throughout the entire examination, there was an area of post polypectomy in the ascending colon that had recent stigmata of bleed, 4 cc epi injection, Gold probe thermocoagulation, and argon plasma coagulation and one hemoclip was placed at that site with good hemostasis. There is an area post polypectomy site in the transverse colon with recent stigmata of bleed in which 2 cc epi injection, Gold probe thermocoagulation, argon plasma coagulation, and one hemoclip was also at that site with good hemostasis. No other masses or evidence of active bleeding was seen. Retroflexion was normal. IMPRESSIONS: 1. Ascending colon polyps post polypectomy site with recent stigmata of bleeding status post 4 cc epi injection, Gold probe thermocoagulation, argon plasma coagulation, and hemoclip x1 placed with good hemostasis. 2. Post polypectomy site in the transverse colon with recent stigmata of bleed status post 2 cc epi injection, Gold probe thermocoagulation, argon plasma coagulation, hemoclip x1 with good hemostasis. RECOMMENDATIONS: 1. Repeat colonoscopy in one year given his numerous polyps he had on prior colonoscopy. 2. Serial hematocrits. 3. If no overt signs of GI bleeding overnight and hemoglobin stable, then okay to discharge home tomorrow morning. 4. Clear liquid diet only at this time.
[2017-06-10] MEDS: buPROPion XL 300 mg ER24 Tablet PO SCH (11:50)
--- NOTE | 2017-06-10 14:37 | PCM.PNMED ---
Subjective Date of Service Jun 10, 2017 Subjective Patient is seen and examined. He is status post EGD scope, a bleeding site at the previous polypectomy was found and addressed. He is eating clear liquids. States that his dizziness and lightheadedness is much better today. Discussed the CT of head results, reviewed EGD scope results the patient, reviewed echo results the patient. I havealso counseled him him that he should not be driving a motor vehicle because of the syncopal episode until cleared by his PCP Exam Vital Signs Vital Sign - Last Date Time Temp Pulse Resp B/P Pulse Ox O2 Delivery O2 Flow Rate FiO2 06/10/17 05:57 66 06/10/17 04:31 36.3 18 139/72 96 CPAP Intake and Output 06/09/17 06/09/17 06/10/17 Cumulative From/Thru 15:00 23:00 07:00 06/09/17 06:34 - 06/10/17 05:15 Intake Total 1200 ml 1000 ml 2200 ml Output Total 1400 ml 550 ml 1950 ml Balance -200 ml 450 ml 250 ml Intake Oral 1200 ml 1000 ml 2200 ml Output Urine Total 1400 ml 550 ml 1950 ml # Bowel Movements 1 3 4 Exam Gen.: No acute distress HEENT: No facial changes that are different from his baseline Heart: Regular rate and rhythm no S3-S4 murmurs Lungs: Clear to auscultation no crackles or wheezes Abdomen: Obese soft nondistended Neurological: CN II to 12 grossly unremarkable, Romberg's unremarkable no arm drift, [id number] and alternating hands are unremarkable Psychiatric: Flat affect, mood is pleasant and cooperative Musculoskeletal:symmetric UE and LE strength IVs and Medications Medications Reviewed: Medications were reviewed in detail Lab and Diagnostics Result Diagram: 06/10/1752306/10/17523 X-Rays, CTs and MRIs PROCEDURE: CT BRAIN WITHOUT CONTRAST ([id number]) INDICATIONS: 77-year-old male with syncopal episode. TECHNIQUE: Noncontrast 4.5 mm thick angled axial sections acquired from the foramen magnum to the vertex, with coronal reformats. COMPARISON: [facility], CT, CT BRAIN WO CON, 02/12/2017, 13:03. [facility], CT, CT BRAIN WO CON, 07/21/2015, 18:57. FINDINGS: Image quality: Excellent. CSF spaces: Basal cisterns are patent. No extra-axial fluid collections. The ventricles are symmetric in size and shape. Brain: No intracranial bleeds or masses. There is non-acute lacunar infarct involving the left thalamic lobe as before. There are minimal periventricular and deep white matter chronic small vessel ischemic changes. There is intracranial internal carotid artery atherosclerosis. Skull and face: Calvarium and visualized facial bones appear intact, without suspicious lesions. There is small right parietal scalp hematoma formation. Sinuses: There is small left maxillary sinus mucus retention cyst or polyp, status post remote bilateral maxillary and ethmoid sinus surgeries. Mastoid air cells appear clear. IMPRESSION: 1. No acute intracranial abnormalities. Small posterior right parietal scalp hematoma. 2. Nonacute lacunar infarct of the left thalamus as before. Minimal periventricular white matter chronic small vessel ischemic change. Dictated by: Aki Chiu M.D. on 06/09/2017 at 10:49 Approved by: Aki Chiu M.D. on 06/09/2017 at 10:53 Assessment & Plan GI Bleed present on admission acute -- Patient is status post colonoscopy, polypectomy. maroon-colored stool is described by EMS -- Dr. Hart from GI is consulted, has performed an EGD this a.m. the bleeding site was found at the site of polypectomy was cauterized -- Every 4 hours H&H are ordered -- Discussed aspirin with Dr. Hart recommends holding it for a week follow-up with Dr. Cabrera in 1-2 weeks Syncope, acute resolved upon admission -- Differential C include but not limited to GI bleed, dehydration, orthostatic hypotension, stroke, cardiac, carotid stenosis, no blood glucose. Recent carotid ultrasound 2016 showed no concern for > 50 %stenosis. Patient was noted to be hypoglycemic at 150 upon arrival to ER -- UA Is negative for infection --Ordered an EEG to rule out seizure as a cause of his syncope -- CT of head showed only parietal hematoma, and an old lacunar infarct -- Troponin T is tender to negative -- Increased compression stockings, elevation of legs. Better hydration is recommended -- Hydrate with normal saline 125 mL per hour -- Orthostatics: Improved but still it is drop in systolic blood pressure -- Telemonitoring: Showed no urinary changes -- Ultrasound echo: "Small left ventricular cavity with normal thickness, wall motion, and systolic function (EF 60-65%). ". Repeat colonoscopy in one year given his numerous polyps he had on prior colonoscopy. 2. Serial hematocrits. 3. If no overt signs of GI bleeding overnight and hemoglobin stable, then okay to discharge home tomorrow morning. 4. Clear liquid diet only at this time. " DM 2, chronic presumed stable -- Takes glimepiride at home, oriented this medication -- Diabetic sliding scale low protocol Nystagmus and right eye -- Unknown chronicity, physical therapy for epleys/vestibular therapy: Negative. The patient does not have BPPV based on lenin maneuver Hypothyroidism chronic presumed stable -- Continue home medications hyperlipidemia chronic presumed stable -Continue medications Hypertension chronic presumed stable -- Due to concern for hypovolemia, resume lisinopril and atenolol. -- amlodipine is restarted 06/10 obstructive sleep apnea chronic presumed stable -- Patient is using CPAP Gout chronic stable -- Continue home medications depression chronic stable -- Continue home medication CODE STATUS: DNR/DNI Alternate decision-maker: Dmitri Meredith Patient is admitted under Inpatient status with expected length of stay greater than 2 midnights due to severity of presenting symptoms, risk of adverse event, and complexity of treatment plan.Discussed diagnosis, workup, imaging, and treatment plan with patient and he expressed an verbalized his understanding. VTE Mechanical Devices: Venous Foot Pump Resuscitation Status: DNR/DNI:Do Not Resuscitate/Intubate (Dmitri Meredith is his ADM) Time spent 25 min Sandra Zuniga DO Jun 10, 2017 07:32
--- NOTE | 2017-06-10 15:33 | NUR ---
VIKA explained and signed. Copy of VIKA and Medicare self administered medication information given to pt.
--- NOTE | 2017-06-10 16:35 | NUR ---
Social Work: Initial Assessment/Multidisciplinary Rounds D: EMR reviewed. Please see Initial Assessment linked to this note for more information. Pt is a 77 year old male admitted [facility] with a readmit risk score of 2 for syncope, GI bleed per H&P. Pt's insurance is Medicare and [employer]. PCP is Stephanie Miller MD. Pt discussed in multidisciplinary rounds, pt is likely to discharge home, no needs. No concerns raised related to pt's capacity for self-care. SW met with pt at bedside to conduct initial assessment. Pt was alert and oriented x3. SW explained role and wrote phone number on white board. [facility] provided [facility] and encouraged pt to contact SW for any discharge planning questions. Pt lives at home with his spouse in [place]. Pt is independent with all ADLs at baseline. Pt uses no DME at baseline, but has crutches available for use at home. Pt drives. Pt has no HH or SNF history. Pt has no LTC or VA benefits. Pt has no DPOA on file, SW requested copy of pt's DPOA. Pt is likely to d/c home with to transport via POV. SW will continue to follow. A: Pt who is independent at baseline and has the capacity for self-care. P: Pt anticipated to discharge home with to transport via POV. No SW needs identified, no MD orders received at this time. SW will continue to follow for needs until time of discharge. DIANE Benitez Addendum: 06/10/17 at 1636 by EMERITA MICHELLE Amended: Links added.
--- NOTE | 2017-06-10 16:55 | NUR ---
Orthos Patient continues to have a systolic drop in blood pressure when going from lying to sitting. Orthostatics BP assessed again this afternoon and continues to be positive. Patient steady on his feet when ambulating to bathroom. Patient reports decrease in dizziness when up out of bed. Nathaly alarm in place.
[2017-06-11 01:11] VITALS: BP 148/58; PULSE 71; RESP 17; O2SAT 95
--- NOTE | 2017-06-11 03:49 | NUR ---
IV pump Patient witnessed changing setting on IV pump unsure if it was intentional or not. Patient also transferring independently in room against advice. Patient education on transferring safety. Compliant with CPAP machine. Bed in low position, call light within reach, intentional rounding. care continues.
[2017-06-11 05:15] VITALS: BP 142/60; PULSE 69; RESP 18; O2SAT 95
[2017-06-11] MEDS: Insulin LISPRO 300 Unit/3 mL Inj SUBQ SCH ×2 (08:00→12:00)
[2017-06-11 08:06] VITALS: BP 133/69; PULSE 72; O2SAT 96
[2017-06-11] MEDS: buPROPion XL 300 mg ER24 Tablet PO SCH (08:08)
[2017-06-11 08:51] VITALS: PULSE 72
[2017-06-11] MEDS: 0.9% Sodium Chloride 1,000 ML IV SCH (10:10)
--- NOTE | 2017-06-11 10:49 | PCM.PNSURG ---
Subjective Date of Service: Jun 11, 2017 Date of Service: Jun 11, 2017 Visit Information: Subjective: events overnight. No overt signs of GI bleeding. Hemoglobin stable this morning 9.8. Status post colonoscopy yesterday with good hemostasis Postop General: No Complaints Objective Vital Sign- Last 8 Hours Date Time Temp Pulse Resp B/P Pulse Ox O2 Delivery O2 Flow Rate FiO2 06/11/17 08:51 72 06/11/17 08:06 72 133/69 96 06/11/17 05:15 36.6 69 18 142/60 95 Room Air Intake and Output- Last 8 Hour 06/11/17 Cumulative From/Thru 07:00 06/09/17 06:34 - 06/11/17 06:48 Intake Total 800 ml 7947 ml Output Total 1000 ml 4950 ml Balance -200 ml 2997 ml Intake Oral 800 ml 5300 ml IV Total 2647 ml Output Urine Total 1000 ml 4950 ml # Bowel Movements 7 General: Oriented X3 Neck: Supple Lungs: Clear to Auscultation Heart: Exam Unremarkable Abdomen: Benign, Soft, Non-tender, Non-distended, Normoactive bowel tones Extremities: Distal Pulses Palpable Result Diagram: 06/11/17 0300 06/10/17 0524 Assessment & Plan Impression This is a 77-year-old, female, history of diabetes, hypertension, hyperlipidemia, hypothyroidism, umbilical hernia, coronary artery disease, GERD , 50% left internal carotid artery stenosis, obstructive sleep apnea, restless legs syndrome, obstructive sleep apnea, diabetes who presents for consultation for syncopal episode with bright red blood per rectum after colonoscopy with post polypectomy. s/p colon 06/10/2017- IMPRESSIONS: 1. Ascending colon polyps post polypectomy site with recent stigmata of bleeding status post 4 cc epi injection, Gold probe thermocoagulation, argon plasma coagulation, and hemoclip x1 placed with good hemostasis. 2. Post polypectomy site in the transverse colon with recent stigmata of bleed status post 2 cc epi injection, Gold probe thermocoagulation, argon plasma coagulation, hemoclip x1 with good hemostasis. RECOMMENDATIONS: 1. Repeat colonoscopy in one year given his numerous polyps he had on prior colonoscopy. 2. Serial hematocrits. 3. If no overt signs of GI bleeding overnight and hemoglobin stable, then okay to discharge home tomorrow morning. 4. Clear liquid diet only at this time. Recs: 1) ok d/c home today 2) f/u gi clinic in 2 wks 3) advance diet as tolerated will sign off Problems: Resuscitation Status: DNR/DNI:Do Not Resuscitate/Intubate ( Viri is his ADM) Carlos A Hart MD Jun 11, 2017 10:49
--- NOTE | 2017-06-11 12:43 | PCM.DIMED ---
Discharge Instructions Date of Service Jun 11, 2017 Dates of Hospitalization Jun 09, 2017 at 08:20 Discharge Diagnosis Discharge Diagnosis Multifactorial Syncope secondary to orthostatic hypotension, hypovolemia due to blood loss, and vasovagal response, GI Bleed due to prior polypectomy, DM2, HTN Medication Instructions Additional med instructions Please take iron as prescribed, use miralax as needed if you become constipated. Please use compression stockings to help with circulation, avoid quick movements of head, avoid raising quickly from your bed, stay well hydrated. Caffiene is ok. Please do not drive a motor vehicle until cleared by your PCP Do not take aspirin for one week Diet Discharge Diet: Heart Healthy, Diabetic Activity Discharge Activity: Limited until seen by PCP Call your provider Call your provider for: Fever or Chills, Shortness of breath, Bleeding, Chest pain, Vomitting, Excessive diarrhea, Weakness (unilateral), Other Patient Instructions Follow-up plan F/U with PCP Dr. Miller in one week, PCP to review the EEG that was done on the AM of discharge with patient (result is pending at this time) F/U with [facility] in 1-2 weeks for GI bleeding.((pt does not remember who his original GI was but states it is within our system) . Please call to find out.) F/U CBC in 5 days prior to F/U with your GI specialist at [facility] Sandra Zuniga DO Jun 11, 2017 12:43
[2017-06-11] MEDS ORDERED: [UNRECOGNIZED DRUG - CODE] MC (12:46)
[2017-06-11] MEDS ORDERED: FERR-83 PO (12:46)
[2017-06-11] MEDS ORDERED: POLY17PO6 PO (12:54)
--- NOTE | 2017-06-11 12:54 | PCM.DC.MED ---
Discharge Summary Date of Service Jun 11, 2017 Dates of Hospitalization Date of Hospital Admission Jun 09, 2017 at 08:20 Date of Discharge: Jun 11, 2017 Providers: Admitting Physician: Sandra Velasquez DO Primary Care Physician: Stephanie Miller MD Attending Physician: Sandra Velasquez DO Diagnosis at Time of Discharge Diagnosis at Time of Discharge Multifactorial Syncope secondary to orthostatic hypotension, hypovolemia due to blood loss, and vasovagal response, GI Bleed due to prior polypectomy, DM2, HTN Consultations GI Procedures XRay, CTs & MRIs PROCEDURE: CT BRAIN WITHOUT CONTRAST ([id number]) INDICATIONS: 77-year-old male with syncopal episode. TECHNIQUE: Noncontrast 4.5 mm thick angled axial sections acquired from the foramen magnum to the vertex, with coronal reformats. COMPARISON: [facility], CT, CT BRAIN WO CON, 02/12/2017, 13:03. [facility], CT, CT BRAIN WO CON, 07/21/2015, 18:57. FINDINGS: Image quality: Excellent. CSF spaces: Basal cisterns are patent. No extra-axial fluid collections. The ventricles are symmetric in size and shape. Brain: No intracranial bleeds or masses. There is non-acute lacunar infarct involving the left thalamic lobe as before. There are minimal periventricular and deep white matter chronic small vessel ischemic changes. There is intracranial internal carotid artery atherosclerosis. Skull and face: Calvarium and visualized facial bones appear intact, without suspicious lesions. There is small right parietal scalp hematoma formation. Sinuses: There is small left maxillary sinus mucus retention cyst or polyp, status post remote bilateral maxillary and ethmoid sinus surgeries. Mastoid air cells appear clear. IMPRESSION: 1. No acute intracranial abnormalities. Small posterior right parietal scalp hematoma. 2. Nonacute lacunar infarct of the left thalamus as before. Minimal periventricular white matter chronic small vessel ischemic change. Dictated by: Aki Chiu M.D. on 06/09/2017 at 10:49 Approved by: Aki Chiu M.D. on 06/09/2017 at 10:53 Brief History 76 yo WM with PMH of DM2, HTN, CAD, colon polyps s/p several colonoscopies is presenting with syncope. He says he has had a colonoscopy [address] kidd as a 3 yr f/u, had a little blood with BM that he wiped on toilet paper at that time but had no other problems until this morning. He was told he had vertigo last year. He has no room spinning sensation. He thinks he eating and hydrating normally. He feels his BP are usually under control. He was told his orthostatics are positive by the EMT. He was standing up and urinating at home this am when he felt like he needs to sit down sat at the edge of the bath tub, then he does not remember what happened. He must have fell hard because his heard it and came to check on him, she called the EMT, he states that he had a moment after this fainting episode, EMT reported maroon colored BM. Patient is quite unaware of this GI bleed. Emergency room Patient's H&H was 11.1/33.7, BG was 152. EKG showed incomplete LBBB. Prior EKG: Also displayed LBBB Patient is admitted for GI bleed and syncope to the [facility] Hospital Course GI Bleed present on admission acute -- Patient is status post colonoscopy, polypectomy. maroon-colored stool is described by EMS -- Dr. Hart from GI is consulted, has performed an EGD this a.m. the bleeding site was found at the site of polypectomy was cauterized -- Every 4 hours H&H are ordered, stable at the time of discharge -- Discussed aspirin with Dr. Hart recommends holding it for a week follow-up with Dr. Cabrera in 1-2 weeks -- Patient was given iron supplementation, miralax scripts Syncope, acute resolved upon admission -- Differential C include but not limited to GI bleed, dehydration, orthostatic hypotension, vasovagal, stroke, cardiac, carotid stenosis, low blood glucose. Recent carotid ultrasound 2016 showed no concern for > 50 %stenosis. Patient was noted to be hypoglycemic at 150 upon arrival to ER. His neurological exam was normal, less suspicion for stroke. -- UA Is negative for infection --Ordered an EEG to rule out seizure as a cause of his syncope, result is pending, PCP is requested to review this with patient. -- CT of head showed only parietal hematoma, and an old lacunar infarct -- Troponin T is tender to negative -- Increased compression stockings, elevation of legs. Better hydration is recommended as IV fluids improved orthostatics -- Hydrated with normal saline 125 mL per hour -- Orthostatics: Improved but still it is drop in systolic blood pressure -- Telemonitoring: Showed no urinary changes -- Ultrasound echo: "Small left ventricular cavity with normal thickness, wall motion, and systolic function (EF 60-65%). ". Repeat colonoscopy in one year given his numerous polyps he had on prior colonoscopy." " DM 2, chronic presumed stable -- Takes glimepiride at home, oriented this medication -- Diabetic sliding scale low protocol -- A1C is 6.2 Nystagmus and right eye -- Unknown chronicity, physical therapy for epleys/vestibular therapy: Negative. The patient does not have BPPV based on lenin maneuver Hypothyroidism chronic presumed stable -- Continued home medications hyperlipidemia chronic presumed stable -Continued medications Hypertension chronic presumed stable -- Due to concern for hypovolemia, resume lisinopril and atenolol. -- amlodipine is restarted 06/10 obstructive sleep apnea chronic presumed stable -- Patient is using CPAP Gout chronic stable -- Continued home medications depression chronic stable -- Continued home medication CODE STATUS: DNR/DNI Alternate decision-maker: Viri Patient is admitted under Inpatient status with expected length of stay greater than 2 midnights due to severity of presenting symptoms, risk of adverse event, and complexity of treatment plan.Discussed diagnosis, workup, imaging, and treatment plan with patient and he expressed an verbalized his understanding. Exam Vital Signs (Last) Date Time Temp Pulse Resp B/P Pulse Ox O2 Delivery O2 Flow Rate FiO2 06/11/17 08:51 72 06/11/17 08:06 133/69 96 06/11/17 05:15 36.6 18 Room Air 06/10/17 10:20 10 Exam General: NAD HEENT: No changes noted since admission, NCAT, no opwn wounds or blood on scalp Heart: RRR, no s3/s4 Lungs: CTA, no crackles or wheezes Abd: Soft, Non distended Neurological: No focal deficits Psych: calm demeanor, affect is neutral Test 06/09/17 06:30 06/09/17 10:05 06/09/17 10:14 06/10/17 05:24 Prothrombin Time 10.0sec (8.1-12.5) Prothromb Time International Ratio 0.94ratio Troponin T 0.010ug/L (0.0-0.011) Hemoglobin A1c 6.2% (4.8-5.6) Urine Color Straw (YELLOW) Urine Appearance Clear (CLEAR,HAZY) Urine pH 5.5 (5.0-8.0) Urine Specific [place] 1.010 (1.003-1.035) Urine Protein Negativemg/dL (NEG,TRACE) Urine Glucose (UA) Negativemg/dL (NEGATIVE) Urine Ketones Negativemg/dL (NEGATIVE) Urine Occult Blood Negative (NEGATIVE) Urine Nitrite Negative (NEGATIVE) Urine Bilirubin Negative (NEGATIVE) Urine Urobilinogen Normalmg/dL (NORMAL) Urine Leukocyte Esterase Negative (NEGATIVE) Urine RBC 0-2/hpf (0-2) Urine WBC 0-5/hpf (0-5) Urine Epithelial Cells None/hpf (NONE-MOD) Urine Crystals None seen (NONE SEEN) Urine Bacteria Few/hpf (NONE-FEW) Urine Hyaline Casts None/lpf (NONE) Urine Granular Casts None seen (NONE SEEN) Urine Waxy Casts None seen (NONE SEEN) Urine Red Blood Cell Casts None seen (NONE SEEN) Urine White Blood Cell Casts None seen (NONE SEEN) Urine Mucus None seen (None Seen) Urine Trichomonas None seen (NONE SEEN) Urine Yeast None (NONE SEEN) Urinalysis Comment None Urine Culture Reflexed Not indicated White Blood Count 9.5th/mm3 (3.8-10.1) Red Blood Count 3.19mil/mm3 (4.40-5.80) Mean Corpuscular Volume 92.2fL (81-100) Mean Corpuscular Hemoglobin 31.0pg (27.0-35.0) Mean Corpuscular Hemoglobin Concent 33.7% (32.0-37.0) Red Cell Distribution Width 13.9% (12.3-15.4) Platelet Count 129bil/L (150-400) Neutrophils (%) (Auto) 60.1% (40-74) Lymphocytes (%) (Auto) 31.6% (14-46) Monocytes (%) (Auto) 5.8% (4-12) Eosinophils (%) (Auto) 1.9% (0-5) Basophils (%) (Auto) 0.4% (0-3) Sodium Level 145mEq/L (134-144) Potassium Level 3.9mEq/L (3.5-5.2) Chloride Level 109mEq/L (97-108) Carbon Dioxide Level 22mmol/L (18-29) Blood Urea Nitrogen 12mg/dL (8-27) Creatinine 1.15mg/dL (0.76-1.27) Estimat Glomerular Filtration Rate 65mL/min (>59) Glucose Level 116mg/dL (60-99) Calcium Level 7.7mg/dL (8.5-10.1) Total Bilirubin 0.3mg/dL (0.0-1.2) Aspartate Amino Transf (AST/SGOT) 20U/L (0-50) Alanine Aminotransferase (ALT/SGPT) 28U/L (0-44) Alkaline Phosphatase 59U/L (25-160) Total Protein 5.2g/dL (6.4-8.4) Albumin 3.1g/dL (3.4-5.0) Test 06/11/17 03:00 Hemoglobin 9.8g/dL (13.8-17.2) Hematocrit 29.4% (41.0-50.0) Discharge Medications Discharge Medications Allopurinol (Allopurinol) 300 Mg Tablet 300 MG PO DAILY (Reported) Amlodipine (Amlodipine) 10 Mg Tablet 10 MG PO DAILY (Reported) Atenolol (Atenolol) 25 Mg Tablet 25 MG PO DAILY (Reported) Atorvastatin (Lipitor) 20 Mg Tablet 20 MG PO DAILY (Reported) Bupropion ER (Bupropion ER) 300 Mg Tab.er.24h 300 MG PO DAILY (Reported) Enalapril Maleate (Enalapril Maleate) 20 Mg Tablet 20 MG PO DAILY (Reported) Ferrous Sulfate (Ferrous Sulfate) 325 Mg Tablet 325 MG PO BIDWM Prescribed by: SANDRA VELASQUEZ DO Gabapentin (Gabapentin) 300 Mg Capsule 300 MG PO BID (Reported) Glipizide ER (Glipizide ER) 2.5 Mg Tab.er.24 1 TABLET PO DAILYWM (Reported) Omeprazole (Omeprazole) 20 Mg Capsule.dr 20 MG PO DAILY (Reported) Tamsulosin (Flomax) 0.4 Mg Capsule 0.4 MG PO DAILY (Reported) As needed Acetaminophen (Acetaminophen) 325 Mg Tablet 325 MG PO Q4H PRN PRN For Fever ( Reported) Durable Medical Equipment Comp.stocking,Knee,Regular,Lrg (Truform Compression Stocking) 1 Each Each 1 EACH [facility] (DME) Prescribed by: SANDRA VELASQUEZ, DO Additional med instructions Please take iron as prescribed, use miralax as needed if you become constipated. Please use compression stockings to help with circulation, avoid quick movements of head, avoid raising quickly from your bed, stay well hydrated. Caffiene is ok. Please do not drive a motor vehicle until cleared by your PCP Do not take aspirin for one week Followup Plan Follow-up plan F/U with PCP Dr. Miller in one week, PCP to review the EEG that was done on the AM of discharge with patient (result is pending at this time) F/U with [facility] in 1-2 weeks for GI bleeding.((pt does not remember who his original GI was but states it is within our system) . Please call to find out.) F/U CBC in 5 days prior to F/U with your GI specialist at [facility] Discharge Diet: Heart Healthy, Diabetic Discharge Activity: Limited until seen by PCP Time spent Greater than 30 minutes was spent in preparation of discharge with greater than 50% of that time dedicated to patient counseling and coordination of care. Sandra Velasquez DO Jun 11, 2017 12:54
--- NOTE | 2017-06-11 13:50 | NUR ---
Social Work- Readiness for Discharge/Multidisciplinary Rounds Data: EMR reviewed. Pt is on day 2 of hospitalization. Pt discussed in multidisciplinary rounds, pt is medically stable to d/c today. Discharge orders are active at this time. No SW needs identified in rounds. Pt is independent at baseline and resides at home with his . Pt to d/c home with his to transport via POV. No discharge needs identified at this time. Assessment: Pt who is independent at baseline. Plan: Pt to d/c home with his to transport via POV. No discharge needs identified at this time. Carolina Miller [employer]
[2017-06-11] MEDS ORDERED: [UNRECOGNIZED DRUG - OTHER] IV ONE (14:04)
--- NOTE | 2017-06-11 14:20 | NUR ---
Discharge Pt discharged at 1409 walking to private vehicle with . VSS, GUDINO, A&O x 3. No c/o pain. No syncope or acute GI bleeding seen today. Pt understands not to drive following discharge. Pt has care notes, discharge instructions and rx's. Discharge instructions discussed and all questions answered. IV removed intact and telemetry off. Has all belongings.
--- NOTE | 2017-06-11 14:32 | NUR ---
Social Work- Discharge Data: EMR reviewed. Pt is on day 2 of hospitalization. Pt is medically stable to d/c today. No discharge needs identified. Pt is independent at baseline and resides at home with his . Pt to d/c home with his to transport via POV. No discharge needs identified at this time. Assessment: Pt who is independent at baseline. Plan: Pt to d/c home with his to transport via POV. No discharge needs identified at this time. DIANE Benitez
--- NOTE | 2017-06-13 19:00 | PROCED ---
[address] [address] EEG PATIENT: CARLOS ERAZO : 1940 MR#: [id number] ADMIT: 06/09/2017 JOB ID: [id number] DATE OF SERVICE: 06/22/2017 HISTORY: The patient is a 77-year-old man with an episode of loss of consciousness. TECHNICAL DESCRIPTION: This digital EEG was recorded using 25 scalp and ear, and two EKG electrodes. It was reviewed in bipolar and referential montages following reformatting in the 10-20 [employer] Electrode Placement System. During the recording, the patient was noted to be awake, drowsy, and asleep. The background was composed of an 8.5-9 hertz, 10-20 microvolt, symmetrical and reactive posterior dominant rhythm that attenuated with eye opening. The rest of the background was composed of low voltage faster frequencies. There were no focal, lateralized, or epileptiform discharges noted. There were no seizures seen. Sleep was characterized by the attenuation of the alpha rhythm and the appearance of symmetrical vertex waves, heralding stage 1 of sleep. This is followed by the development of symmetrical sleep spindles and K complexes, heralding stage 2 of sleep. The EKG rhythm strip revealed a heart rate of 60 to 80 beats per minute with no significant abnormalities noted. The EKG rhythm strip revealed a heart rate of 60-80 beats per minute with no apparent arrhythmias noted. No hyperventilation was performed. Photic stimulation from 1-30 hertz did not elicit any photic driving response. IMPRESSION: This EEG performed in the awake, drowsy, and asleep states is within normal limits. Clinical correlation is advised.
== END 2017-06-11 14:05 | disposition home or self-care (01) ==
LOC: SED 06:30 → OSC 08:20
PROVIDERS: ADMIT Family Medicine; ATTEND Family Medicine
DX: K91.840 Postprocedural hemorrhage of a digestive system organ or structure following a digestive system procedure (principal); I95.1 Orthostatic hypotension; E86.1 Hypovolemia; R55 Syncope and collapse; K92.1 Melena; S06.891A Other specified intracranial injury with loss of consciousness of 30 minutes or less, initial encounter; I10 Essential (primary) hypertension; E11.9 Type 2 diabetes mellitus without complications; I25.10 Atherosclerotic heart disease of native coronary artery without angina pectoris; I65.23 Occlusion and stenosis of bilateral carotid arteries; E78.5 Hyperlipidemia, unspecified; E03.9 Hypothyroidism, unspecified; G25.81 Restless legs syndrome; K21.9 Gastro-esophageal reflux disease without esophagitis; N40.0 Benign prostatic hyperplasia without lower urinary tract symptoms; G47.33 Obstructive sleep apnea (adult) (pediatric); R61 Generalized hyperhidrosis; F32.9 Major depressive disorder, single episode, unspecified; G47.419 Narcolepsy without cataplexy; W17.89XA Other fall from one level to another, initial encounter; Y93.E1 Activity, personal bathing and showering; Y92.002 Bathroom of unspecified non-institutional (private) residence as the place of occurrence of the external cause; Y99.8 Other external cause status; Z88.8 Allergy status to other drugs, medicaments and biological substances; Z86.010 Personal history of colon polyps; Z79.82 Long term (current) use of aspirin; Z98.890 Other specified postprocedural states
CPT/HCPCS: 36415; 45382; 70450; 80053; 81000; 83036; 84484; 85014; 85018; 85025; 85610; 86850; 93005; 95819; 96374; 97161; 99285; C8929; G0378; J0171; J1430; J1815; J7030; J7120; S0164

== ENCOUNTER 2017-06-16 12:47 | Emergency (ER) | payer MEDICARE, OTHER ==
[~2017-06-16] VITALS: Ht 182.9 cm; Wt 113.6 kg
[~2017-06-16 12:47] MED LIST changes: -CHOL10008 PO; +FERR-83 PO; +GLIP2.5T2 PO; -MAGN27TA2 PO; -OMEG-122 PO; -OXYC1TAB24 PO; +POLY17PO6 PO; +[UNRECOGNIZED DRUG - CODE] MC
[2017-06-16 12:51] VITALS: BP 163/72; PULSE 87; RESP 16; O2SAT 97
--- NOTE | 2017-06-16 13:26 | ED.REPORT ---
HPI-General Illness Date of Service Jun 16, 2017 ED Provider: Ghazal Arce MD The pt is a 77 y/o male w/ a hx of CAD, HTN, GERD, hyperlipidemia, depression, DM, an umbilical hernia, hypothyroidism, a ventral hernia repair, multiple colonoscopies w/ polyp removal, and many other chronic conditions, presenting to the ED due to increased SOB. He is also experiencing increased dizziness. He reports just sitting when the symptoms began. Denies CP, blood in stool or changes in eating habits. The pt had a colonoscopy 9 days ago, had 7 polyps removed, and later had a syncopal episode while sitting on the toilet upon returning home. He then had a 2nd colonoscopy 6 days ago and had two cauterizations to stop the bleeding. He did not receive any blood transfusions and was told he lost roughly 2 pints of blood. Nursing Notes Stated Complaint: FATIGUE, LIGHT HEADED, UNSTEADY Chief Complaint: SOB Nursing Notes Reviewed: Yes Allergies: Coded Allergies: Cephalosporins (Verified Allergy, Unknown, MOUTH AND THROAT BLISTERS, 06/16) citalopram (Verified Adverse Reaction, Severe, DIZZINESS,UNSTEADINESS, ) Scheduled Allopurinol (Allopurinol) 300 Mg Tablet 300 MG PO DAILY Amlodipine (Amlodipine) 10 Mg Tablet 10 MG PO DAILY Atenolol (Atenolol) 25 Mg Tablet 25 MG PO DAILY Atorvastatin (Lipitor) 20 Mg Tablet 20 MG PO DAILY Bupropion ER (Bupropion ER) 300 Mg Tab.er.24h 300 MG PO DAILY Enalapril Maleate (Enalapril Maleate) 20 Mg Tablet 20 MG PO DAILY Ferrous Sulfate (Ferrous Sulfate) 325 Mg Tablet 325 MG PO BIDWM Gabapentin (Gabapentin) 300 Mg Capsule 300 MG PO BID Glipizide ER (Glipizide ER) 2.5 Mg Tab.er.24 1 TABLET PO DAILYWM Omeprazole (Omeprazole) 20 Mg Capsule.dr 20 MG PO DAILY Polyethylene Glycol 3350 (Miralax) 17 Gm Powd.pack 17 GM PO DAILY Tamsulosin (Flomax) 0.4 Mg Capsule 0.4 MG PO DAILY Scheduled PRN Acetaminophen (Acetaminophen) 325 Mg Tablet 325 MG PO Q4H PRN PRN For Fever General Time Seen by MD: 13:17 Chief Complaint Other (Shortness of breath ) Hx Obtained From: Patient, Spouse Sudden in Onset?: Yes Onset Occurred: Just prior to arrival Symptom Duration: Since onset Recent Healthcare: No recent hospitalization, Recent doctor visit Past Medical History Past Medical History Notes: PCP: Dr. Miller Carotid duplex 07/08/2015 1. Stable 50-69% right internal carotid artery stenosis. 2. Stable less than 50% left internal carotid artery stenosis. Past Medical History Sleep Apnea Carotid stenosis Hypothyroid Umbilical Hernia Restless leg syndrome Gout Hyperhidrosis Hypogonadism Narcolepsy Colonoscopy in 2014 years ago w/ 100 polyps removed Colonoscopy 06/07/17 w/ 7 polyps removed, bleeding with repeat 06/10 with cauterization at two sites Reports: Coronary artery disease, Diabetes mellitus, GERD, Hyperlipidemia, Hypertension Reports: Depression Past Surgical History Right carotid aortectomy Ventral hernia repair Family History Reports: Stroke Reports: Cancer Smoking History Never Smoker Social History Other Social History: Good social support, , Local resident Ambulatory Status Independent Review of Systems Denies changes in eating habits; Full Review of Systems Respiratory: Reports: Shortness of breath Cardiovascular: Denies: Chest pain GI: Denies: Bloody/tarry stool Neurologic: Reports: Dizziness Complete sys rev & neg: except as marked. Physical Exam Vital Signs Vital Signs Date Time Temp Pulse Resp B/P Pulse Ox O2 Delivery O2 Flow Rate FiO2 06/16/17 14:17 36.4 80 16 155/57 98 Room Air 06/16/17 12:51 36.4 87 16 163/72 97 Room Air Initial VS: Reviewed General/Constitutional: Well-developed, Well-nourished Head / Eyes: Atraumatic, Normocephalic, PERRL ENT: Mucous membranes moist, Conjunctiva normal, No scleral icterus Neck: Supple, Non-tender, Full range of motion Respiratory: Breath sounds normal, Clear to auscultation, No respiratory distress Cardiovascular: Regular rate & rhythm, Heart sounds normal, Intact distal pulses Abdomen / GI: Soft, Non-tender, No guarding, No rebound, No distention Extremities: Vascular intact, Neuro intact, No swelling, No tenderness Skin: Warm, Dry, No cyanosis Neurologic: Alert, Oriented, Nonfocal Psychiatric: Mood/affect normal, Behavior normal, Normal thought content Interpretation & Diagnostics Lab Results Interpretation Result Diagram: 06/16/17 1310 06/16/17 1310 Test 9/16/17 13:10 White Blood Count 9.1th/mm3 (3.8-10.1) Red Blood Count 3.61mil/mm3 (4.40-5.80) Hemoglobin 11.2g/dL (13.8-17.2) Hematocrit 33.6% (41.0-50.0) Mean Corpuscular Volume 93.1fL (81-100) Mean Corpuscular Hemoglobin 31.0pg (27.0-35.0) Mean Corpuscular Hemoglobin Concent 33.3% (32.0-37.0) Red Cell Distribution Width 14.3% (12.3-15.4) Platelet Count 144bil/L (150-400) Neutrophils (%) (Auto) 69.0% (40-74) Lymphocytes (%) (Auto) 21.1% (14-46) Monocytes (%) (Auto) 6.8% (4-12) Eosinophils (%) (Auto) 2.5% (0-5) Basophils (%) (Auto) 0.4% (0-3) Sodium Level 138mEq/L (134-144) Potassium Level 4.1mEq/L (3.5-5.2) Chloride Level 102mEq/L (97-108) Carbon Dioxide Level 21mmol/L (18-29) Blood Urea Nitrogen 19mg/dL (8-27) Creatinine 1.39mg/dL (0.76-1.27) Estimat Glomerular Filtration Rate 52mL/min (>59) Glucose Level 181mg/dL (60-99) Calcium Level 8.7mg/dL (8.5-10.1) Magnesium Level 1.6mg/dL (1.6-2.6) Total Bilirubin 0.3mg/dL (0.0-1.2) Aspartate Amino Transf (AST/SGOT) 38U/L (0-50) Alanine Aminotransferase (ALT/SGPT) 53U/L (0-44) Alkaline Phosphatase 77U/L (25-160) Troponin T < 0.010ug/L (0.0-0.011) Total Protein 6.6g/dL (6.4-8.4) Albumin 3.8g/dL (3.4-5.0) Hold Harvey Top Tube Received (Received) ECG Interpretation ECG Interpretation: Rate 81 NSR Prolonged DE interval LBBB Similar to 06/09/17 Time: 13:13 Interpreted by: ED physician Re-Eval/Medical Decision Med Decision/Clinical Course Presents with weakness and dizziness after standing up. Labs are relatively reassuring with only slightly elevated creatinine. Symptoms have entirely resolved after a liter fluid bolus. Patient is discharged home in stable condition Source of Hx: Old records Time of Eval: 16:00 Re-Evaluation/Progress Note: Labs and studies are reviewed with patient. No evidence of KS, sepsis, life-threatening issues. Creatinine is slightly elevated suggesting mild dehydration. Patient is reexamined and is mildly orthostatic With heart rate sitting in the mid 80s rising 210 when standing with slight dizziness. Anticipate that much of his issues today are related to excessive fatigue and dehydration. No life-threatening issues are being noted. Will give him a liter of fluid and reevaluate that anticipate that he will safely be able to be discharged home Counseled Regarding: Diagnosis, Lab results, Need for follow-up, When/why to return to ED Discharge & Departure Primary Impression: Dehydration Additional Impressions: Renal insufficiency GI bleed Ruled Out: STEMI (ST elevation myocardial infarction), Sepsis Disposition: Home Discharge Condition All VS Reviewed: Yes Condition: Stable Additional Instructions: I did not find any evidence for life-threatening issues today. Specifically there is no evidence of heart attack, infection, significant bleeding. In fact her body seems to be making all the red blood cells it needs after your recent episode of bleeding following the polyp removals from your colon. You have responded nicely to a liter of normal saline fluid with your symptoms essentially resolved. If you are again having problems, please return to the emergency room. You are getting a bit too familiar with all of our processes with your recent visits, I hope you don't get have to revisit us again soon. Heal well Referrals: Stephanie Miller MD (PCP) Scribe Attestation Portions of this note were transcribed by Matthieu Levin. I, Dr. Arce personally performed the history, physical exam and medical decision-making; I reviewed and confirmed the accuracy of the information in the transcribed note. copies to: Stephanie Miller MD, Shawna L MD Jun 16, 2017 13:26 Matthieu Levin Jun 16, 2017 13:31
[2017-06-16 13:31] LABS: BASOPHILS % (AUTO) 0.4 % (0-3); EOSINOPHILS % (AUTO) 2.5 % (0-5); MONOCYTES % (AUTO) 6.8 % (4-12); Mean Corpuscular Volume 93.1 fL (81-100); Platelet Count 144 bil/L (150-400)
[2017-06-16 13:50] LABS: TROPONIN T < 0.010 ug/L (0.0-0.011)
[2017-06-16 14:00] LABS: Magnesium 1.6 mg/dL (1.6-2.6)
[2017-06-16 14:17] VITALS: BP 155/57; PULSE 80; RESP 16; O2SAT 98
[2017-06-16] MEDS ORDERED: 0.9% Sodium Chloride 1,000 ML IV ONE (16:10)
== END 2017-06-16 17:46 | disposition home or self-care (01) ==
LOC: SED 12:47
DX: E86.0 Dehydration (principal); N28.9 Disorder of kidney and ureter, unspecified; I10 Essential (primary) hypertension; I25.10 Atherosclerotic heart disease of native coronary artery without angina pectoris; E11.9 Type 2 diabetes mellitus without complications; K21.9 Gastro-esophageal reflux disease without esophagitis; E78.5 Hyperlipidemia, unspecified; F32.9 Major depressive disorder, single episode, unspecified; E03.9 Hypothyroidism, unspecified; Z79.84 Long term (current) use of oral hypoglycemic drugs; Z88.1 Allergy status to other antibiotic agents; Z88.8 Allergy status to other drugs, medicaments and biological substances
CPT/HCPCS: 36415; 80053; 83735; 84484; 85025; 86850; 93005; 96360; 99285; J7030